=== PATIENT | male | born 1955 | race Caucasian/White ===

== ENCOUNTER 2019-03-26 11:00 | Outpatient (AMBR) | payer MEDICAID, SELFPAY ==
--- NOTE | 2019-03-20 15:31 | PT.OIERPT ---
PT OP Initial Eval Patient Information Visit Reasons: right hip Medical Diagnosis: M25.551 Treatment Dx #1: Right Hip Pain Treatment Dx #2: Right Hip Weakness Start of Care: 03/20/19 Initial Assessment Subjective Pt is a 63 y/o male c/o chronic right hip pain (5/10) started several years ago from fall accident. Pt mention that he recently completed physical therapy which help his back a little, however, wanted to resume more physical therapy for his hip. Pt still has limitation with sit-stand, standing, walking, chores, self care, cooking, cleaning, and performing normal ADLs. Pt further mention that pain meds are helping him control his pain currently. Objective Right Hip PROM: all motions are WFL with end range pain in all plane Right Hip AROM Flexion: 90 deg with pain Abduction: 45 deg Extension: 20 deg IR/ER: 20 deg with pain Right Hip MMTs Glute Med: 3-/5 Glute Max: 3-/5 Hip Flexors: 3-/5 Special Test (-) hip scour (+) FABERs Assessment Pt demonstrate right hip pain with weakness leading to decline function and difficulty with ADLs, chores, and ambulation. Pt will attempt physical therapy if pain persist Pt will be refer back to PCP for further consultation. Short Term and Receptionist Scheduler Goals 1) Increase right hip AROM with less pain in 6 wks to be able to perform chores 2) Increase right hip MMTs grossly to 4-/5 in 6 wks to be able to walk more than 1 hr 3) Decrease right hip pain to 2/10 in 6 wks to be able to perform stand more than 1 hr 4) Indep with HEP Treatment Plan 1) Manual Therapy 2) Therapeutic Activities 3) Therapeutic Exercises 4) Modalities (ice, heat) 5) Balance Training Frequency and Duration 2 x wk for 6 wks Certification Dates: 03/20/19 to 06/20/19 Office Procedures PT Procedures PT Date of Service: 03/20/19 OP PT Eval Mod Complex 30 minutes: Yes
--- NOTE | 2019-03-23 10:11 | PTNOTE_ITS ---
PT Outpatient Daily Note Date of Service: March 23, 2019 OP Daily Note Visit Reasons: right hip Outpatient Physical Therapy Treatment Date: 03/23/19 Subjective: pt states he has pain upon visit due to weakness. Objective: see flow sheet. Assessment: pt tolerated exercises as he had no complaints besides feeling fat igue. pt needs cuing for correct posture as he leans forward a lot. he demonstrates good ROM of the hip throughout ther ex. no antaglic gait noted. last exercise was a stretch of the hip joint in which he felt was tight but after a min it relaxed. pt had difficulty getting up from supine. Plan: continue POC per PT. Length of Time (minutes) of Treatment: 30 Minutes Office Procedures PT Procedures PT Date of Service: 03/20/19 OP PT Eval Mod Complex 30 minutes: Yes
--- NOTE | 2019-03-26 12:54 | PT.ODAYNRPT ---
PT Outpatient Daily Note Date of Service: March 26, 2019 OP Daily Note Visit Reasons: right hip Outpatient Physical Therapy Treatment Date: 03/26/19 Subjective: pt states he feels ok today and had no other complaints. Objective: see flow sheet. Assessment: pt demonstrates poor posture with ambulation. educated about upright posture. needs cuing to stand tall and look up during exercises. added new exercise in which would help strengthen his BLE which is on the TG machine. pt was able to get on and off with no trouble. increased resistance from YTB to RTB in which he had no complaints of increase difficulty. he was able to hold LLPS stretch on the RLE for a few mins. Plan: continue POC per PT. Length of Time (minutes) of Treatment: 30 Minutes Office Procedures PT Procedures PT Date of Service: 03/20/19 OP PT Eval Mod Complex 30 minutes: Yes PT Procedures PT Date of Service: 03/23/19 Therapeutic Exercise 30 minutes: Yes PT Procedures PT Date of Service: 03/26/19 Therapeutic Exercise 30 minutes: Yes
== END 2019-04-07 23:59 | disposition home or self-care (01) ==
PROVIDERS: Visit Provider Nurse Practitioner
DX: M25.551 Pain in right hip (principal); G89.29 Other chronic pain; R53.1 Weakness
CPT/HCPCS: 97110; 97162

== ENCOUNTER 2024-03-26 14:13 | Outpatient (RCR) | payer MEDICARE, MEDICAID, SELFPAY | END 2024-04-07 23:59 | disposition home or self-care (01) | LOC: SCTC 14:13 | PROVIDERS: PCP Physician Assistant; Referring Provider Physician Assistant; Visit Provider Internal Medicine Hematology & Oncology | DX: E83.119 Hemochromatosis, unspecified (principal); M54.9 Dorsalgia, unspecified; G89.29 Other chronic pain; Z86.19 Personal history of other infectious and parasitic diseases; J44.9 Chronic obstructive pulmonary disease, unspecified; Z87.891 Personal history of nicotine dependence | CPT/HCPCS: 99212; G0463 ==

== ENCOUNTER → 2024-03-26 | Outpatient (CLI) | payer MEDICARE, MEDICAID, SELFPAY ==
[2024-03-26 08:37] LABS: Basophils # (Auto) 0.1 Thou/mm3 (0.0-0.2); Basophils % (Auto) 1 % (0-2.5); Eosinophils # (Auto) 1.5 Thou/mm3 (0.0-0.5); Eosinophils % (Auto) 19 % (0-10); Hematocrit 42.9 % (41.0-53.0); Hemoglobin 14.7 g/dL (13.5-16.0); Immature Granulocytes % (Auto) 0 % (0-0); Immature Granulocytes Auto 0.02 Thou/mm3 (0.00-0.00); Lymphocytes # (Auto) 2.3 Thou/mm3 (1.0-4.8); Lymphocytes % (Auto) 28 % (10-50); Mean Corpuscular HGB Conc 34.3 g/dl (31.0-37.0); Mean Corpuscular Hemoglobin 32.5 pg (25.0-35.0); Mean Corpuscular Volume 95 fL (80-100); Monocytes # (Auto) 0.7 Thou/mm3 (0.0-0.8); Monocytes % (Auto) 9 % (0-12); Neutrophils # (Auto) 3.6 Thou/mm3 (1.8-7.7); Neutrophils % (Auto) 44 % (37-80); Nucleated Red Blood Cell % 0 /100 WBC (0); Platelet Count 170 Thou/mm3 (140-440); RDW Standard Deviation 46.1 fL (35.1-43.9); Red Blood Count 4.52 Miln/mm3 (4.50-5.90); White Blood Count 8.2 Thou/mm3 (3.8-10.6)
[2024-03-26 08:51] LABS: Alanine Aminotransferase 19 U/L (10-49); Albumin, Serum 4.1 gm/dL (3.4-4.8); Alkaline Phosphatase 128 U/L (46-116); Anion Gap 5 (7-16); Aspartate Amino Transferase 21 U/L (0-34); BUN/Creatinine Ratio 18 Ratio (12-20); Bilirubin,Total 0.6 mg/dL (0.3-1.2); Blood Urea Nitrogen 14 mg/dL (9-23); Calcium 9.4 mg/dL (8.3-10.6); Calcium (Corrected) 9.4 mg/dL (8.5-10.1); Carbon Dioxide 28.8 mMol/L (20.0-31.0); Chloride 109 mMol/L (98-107); Creatinine (Component) 0.8 mg/dL (0.6-1.3); Globulin 2.1 gm/dL (2.3-3.5); Glucose 106 mg/dL (74-106); Osmolality,Calculated 285 (275-295); Potassium 3.7 mMol/L (3.4-5.1); Sodium 143 mMol/L (136-145); Total Protein 6.2 gm/dL (5.7-8.2); eGFR > 60 See Note
[2024-03-26 10:08] LABS: Ferritin 21 ng/mL (10.5-307.3); Total Iron Binding Capacity 266 mcg/dL (250-425)
[2024-03-26 10:17] LABS: Iron 72 mcg/dL (65-175); Percent Iron Saturation 27 % (20-55); Unsaturated Iron Binding 194 (225-295)
== END | disposition home or self-care (01) ==
LOC: SCTO 06:43
PROVIDERS: PCP Physician Assistant; Referring Provider Nurse Practitioner Family; Visit Provider Nurse Practitioner Family
DX: E83.119 Hemochromatosis, unspecified (principal)
CPT/HCPCS: 36415; 80053; 82105; 82728; 83540; 83550; 85025

== ENCOUNTER → 2024-04-27 | Outpatient (CLI) | payer MEDICARE, MEDICAID, SELFPAY ==
[2024-04-27 09:28] LABS: Basophils # (Auto) 0.1 Thou/mm3 (0.0-0.2); Basophils % (Auto) 1 % (0-2.5); Eosinophils # (Auto) 1.4 Thou/mm3 (0.0-0.5); Eosinophils % (Auto) 22 % (0-10); Hematocrit 42.7 % (41.0-53.0); Hemoglobin 14.6 g/dL (13.5-16.0); Immature Granulocytes % (Auto) 0 % (0-0); Immature Granulocytes Auto 0.01 Thou/mm3 (0.00-0.00); Lymphocytes # (Auto) 2.4 Thou/mm3 (1.0-4.8); Lymphocytes % (Auto) 36 % (10-50); Mean Corpuscular HGB Conc 34.2 g/dl (31.0-37.0); Mean Corpuscular Hemoglobin 32.2 pg (25.0-35.0); Mean Corpuscular Volume 94 fL (80-100); Monocytes # (Auto) 0.4 Thou/mm3 (0.0-0.8); Monocytes % (Auto) 7 % (0-12); Neutrophils # (Auto) 2.3 Thou/mm3 (1.8-7.7); Neutrophils % (Auto) 35 % (37-80); Nucleated Red Blood Cell % 0 /100 WBC (0); Platelet Count 128 Thou/mm3 (140-440); RDW Standard Deviation 46.9 fL (35.1-43.9); Red Blood Count 4.54 Miln/mm3 (4.50-5.90); White Blood Count 6.7 Thou/mm3 (3.8-10.6)
[2024-04-27 09:42] LABS: Alanine Aminotransferase 16 U/L (10-49); Albumin, Serum 4.2 gm/dL (3.4-4.8); Albumin/Globulin Ratio 2.1 (1.2-2.2); Alkaline Phosphatase 125 U/L (46-116); Anion Gap 6 (7-16); Aspartate Amino Transferase < 10 U/L (0-34); BUN/Creatinine Ratio 19 Ratio (12-20); Bilirubin,Total 0.7 mg/dL (0.3-1.2); Blood Urea Nitrogen 15 mg/dL (9-23); Carbon Dioxide 28.1 mMol/L (20.0-31.0); Chloride 109 mMol/L (98-107); Creatinine (Component) 0.8 mg/dL (0.6-1.3); Glucose 106 mg/dL (74-106); Osmolality,Calculated 285 (275-295); Potassium 3.8 mMol/L (3.4-5.1); Sodium 143 mMol/L (136-145); Total Protein 6.2 gm/dL (5.7-8.2); eGFR > 60 See Note
== END | disposition home or self-care (01) ==
LOC: SCTO 08:48
PROVIDERS: PCP Physician Assistant; Referring Provider Nurse Practitioner Family; Visit Provider Nurse Practitioner Family
DX: E83.119 Hemochromatosis, unspecified (principal)
CPT/HCPCS: 36415; 80053; 82105; 85025

== ENCOUNTER 2024-05-21 15:15 | Outpatient (RCR) | payer MEDICARE, MEDICAID, SELFPAY ==
--- NOTE | 2024-05-21 21:57 | CTCFLWUP_ITS ---
Patient: KENNEY GIBBS : 1955 Page 6 of 6 FOLLOW UP NOTE DATE OF SERVICE: 05/21/2024 NAME: KENNEY GIBBS ACCOUNT: [id number] : 1955 AGE: 69 INTERVAL HISTORY: Patient have no new complaints. Patient is upset that he could not find pacemaker company to switch of his pacemaker so he can get his MRI. He completed his lab works today and so he is unable to get results to discuss on the visit. HISTORY OF PRESENT ILLNESS: PREVIOUS NOTE: Kenney Gibbs is a 69-year-old ENG speaking male with history of IV drug a buse when he was 17 years old for about a year. Apparently he contracted hepatitis C infection. Abo ut 3 years ago he was treated with Harvoni. He is referred to hematology clinic to rule out hemochro matosis due to elevated ferritin levels. History of smoking for 40 years, not smoking at this time, COPD, chronic back pain. 12/11/2020: Serum ferritin 3954. Hepatitis C virus antibody more than 11.0. Hepatitis C RNA by PCR no t detected.? 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 AFP 1.8. 01/20/2021: Ultrasound of the liver- 04/23/2021: iron saturation 88%, ferritin 2119, unsaturated iron binding 27. Hemoglobin 15.4 and hem atocrit 44.1. 05/05/2021: Inherited hemochromatosis DNA mutation analysis? 06/16/2021: Hemoglobin 14.4, MCV 98, iron saturation 87%, ferritin 2707. aFP 3.20 06/16/2021: Mr. Gibbs had first therapeutic phlebotomy. He had 300 mL of blood removed. Unfortunate ly following well patient became unconscious for a few seconds. He had severe vasovagal attack. He was transferr ed to ER and eventually he recovered in the ICU. 07/06/2021: WBC 8.2, hemoglobin 15.7, MCV 99, platelets 174,000, creatinine 0.73, AST 36, ALT 33, iron saturation more than 93% ferritin 2065. 07/06/2021: Jadenu 360 mg p.o. 3 times daily prescribed. Unfortunately insurance company denied the r equest. 07/28/2021: Insurance company replied? 09/18/2021: Mr. Gibbs was started on therapeutic phlebotomies. 01/20/2022: Mr. Gibbs had a total of 14 therapeutic phlebotomy so far. 01/25/2022: Iron saturation 80%, ferritin 1261, hemoglobin 12.9, MCV 99, WBC 8.9, ANC 5.3, platelets 1 66,000. aFP 2.50. 01/26/2022: Colonoscopy : 03/17/2022: AFP 1.6, Ferritin 1152 05/20/2022: AFP <1.3, Ferritin 1115 07/12/2022: AFP 1.9, Ferritin 764 09/27/22: AFP 2.1, Ferritin 262 10/25/2022: AFP <1.3, Ferritin 197 09/18/2022: Liver US 11/18/2022: Ferritin 124, AFP 2.3 02/10/2023: Ferritin 53, AFP 1.70 03/14/2023: Ferritin 48, 39% iron saturation, hemoglobin 15.3 04/07/2023: Therapeutic phlebotomy 06/15/2023: Ferritin 57, iron saturation 41%, AFP 1.40, hemoglobin 14.2 06/16/2023: Therapeutic phlebotomy. 06/23/2023: Chest without contrast IMPRESSION: No mediastinal lymphadenopathy Soft opacities throughout both lungs most consistent with pneumonia, Covid pneumonia would be included in the differential 07/13/2023: Ferritin 44, iron saturation 40%, hemoglobin 15.0 09/14/2023: Ferritin 44, iron saturation 72%, AFP 1.50, hemoglobin 14.8, MCV 96 09/30/2023: Ultrasound liver 10/11/2023: Therapeutic phlebotomy 11/09/2023: Therapeutic phlebotomy 11/14/2023: Ferritin 39, iron saturation 58%, AFP 2.0, hemoglobin 14.6, MCV 97 12/19/2023: Therapeutic phlebotomy 12/30/2023: AFP 2.20, ferritin 24, iron saturation 29%, hemoglobin 13.5, MCV 97 01/10/2024: Ferritin 20, iron saturation 18%, hemoglobin 13.8, MCV 97 01/17/2024: Ferritin 25, iron saturation 40%, hemoglobin 13.8, MCV 97 01/15/2024: Ferritin 21, iron saturation 56%, hemoglobin 14.0, MCV 96 OTHER MEDICAL HISTORY/CONDITIONS: FAMILY HISTORY: SOCIAL HISTORY: MEDICATIONS: 1. albuterol-budesonide - 90-80 mcg/actuation 1 As directed 2. amitriptyline - 50 mg Daily 3. omeprazole - 20 mg 1 Capsule Twice a Day 4. Pravachol - 40 mg Daily Medications Last Reconciled by Avelina Magallanes RN on 05/21/2024 ALLERGIES: No Known Drug Allergies REVIEW OF SYSTEMS: A complete 14-point review of systems was performed and is negative except as noted in interval histo ry. PHYSICAL EXAMINATION: VITAL SIGNS: Temperature?98.9, B/P?161/82, Oxygen?Saturation?96% Weight?197?lbs PAIN: 5 - Between moderate and severe pain ECOG Performance Status: 0 - Asymptomatic and fully active GENERAL APPEARANCE: Appears well, in no apparent distress, appropriately interactive. HEENT: Normocephalic, no temporal wasting, normal conjunctiva, no scleral icterus, normal hearing, li ps without lesions, neck normal range of motion. CARDIOVASCULAR: Not assessed. PULMONARY: Normal respiratory effort, no respiratory distress or use of accessory muscles, speaking i n full sentences, no tachypnea. EXTREMITIES: No pedal edema or cyanosis. SKIN: Normal skin appearance. NEUROLOGIC: Alert and oriented x4. PSHYCHIATRIC: Appropriate affect, mood normal, behavior normal, intact thought and speech. LABORATORY DATA: I have personally reviewed and interpreted each of the patient?s relevant lab tests, abnormal finding s are below: Date 05/21/24 ??WHITE?BLOOD?COUNT?(Thou/mm3) 8.1 ??RED?BLOOD?COUNT?(Miln/mm3) 4.66 ??HEMOGLOBIN?(gm/dl) 15.2 ??HEMATOCRIT?(%) 43.8 ??PLATELET?COUNT?(Thou/mm3) 139?L ??NEUTROPHILS?%,?AUTO?(%) 42 ??LYMPH?%,?AUTO?(%) 29 ??NEUTROPHILS,?AUTO?(Thou/mm3) 3.4 ASSESSMENT/PLAN: C282Y homozygous hemochromatosis. Weekly therapeutic phlebotomy for 52 weeks. First therapeutic phlebotomy on 09/18/2021. Last therapeutic phlebotomy was on 12/19/2023. History of hepatitis C infection treated with Harvoni in the past. Insurance company denied Jadenu (deferasirox). Goal hematocrit less than 45 Patient have not completed his MRIMRI using T2*, R2, and R2* measurements has become increasingly acc urate for determining hepatic and cardiac ir?n deposition and has generally supplanted direct tissue biopsy for assessing ir?? overload and quantifying its severity. Patient have pacemaker and will see if he can get mri liver Will check the CBC and ferritin level at approximately every 2 months now . I f the ferritin level has increased and the increase is interpreted to be due to ir?n reaccumulation ( provided there is not another explanation such as an intercurrent illness), we perform maintenance ph lebotomies. Typically, removal of one unit of blood approximately three to six times per year is requ ired (approximately once every two to four months). We target a ferritin level in the low normal rang e (between 50 and 150 ng/mL) #2. History of hepatitis C infection treated with Harvoni in the past. History of IV drug abuse when Mr. Gibbs was 17 years of age for about a year. Insurance company denied Jadenu (deferasirox). Ultrasound liver, primary hepatocellular disease versus cirrhosis, infiltration no focal liver lesion s, 09/30/2023. AFP remains stable, 2.20, (12/30/2023) #3. Chronic back pain. Continue following up with PCP for management. Better after steroid injection #4. COPD, history of smoking [address] of chest, no mediastinal lymphadenopathy, pneumonia as detailed above, 06/23/2023; completed antibiotics given by PCP cough improved. Continue following up with PCP for management. ORDERS: CBC CMP ferritin iron studies Number provided to 4 pacemaker company per patient RETURN TO CLINIC: After the MRI BILLING AND COMPLIANCE: I reviewed external records from providers outside my specialty as summarized above. I spent a total of 50 minutes on this patient?s care on the day of their visit excluding time spent related to any bi lled procedures. This time includes time spent with the patient as well as time spent documenting in the medical record, reviewing patients records and tests, obtaining history, placing orders, communi cating with other healthcare professionals, counseling the patient, family or caregiver, and/or care coordination for the diagnoses above. Electronically Signed by: {Object.Sanct_ID*[email or web address]@M}, {Object.Sanct_ID*PnP.Suffix@U} D: {Object.Sanct_Date} T: {Object.Sanct_Time} CC: Cam?Yi?Clara,? PCP: Bertin Card Referring: Chetan Berger This document was completed utilizing speech recognition software. Grammatical errors, random word in sertions, pronoun errors, and incomplete sentences are an occasional consequence of this system due t o software limitations, ambient noise, and hardware issues. Any formal questions or concerns about th e content, text or information contained within the body of this dictation should be directly address ed to the provider for clarification.
== END 2024-06-08 23:59 | disposition home or self-care (01) ==
LOC: SCTC 15:15
PROVIDERS: PCP Internal Medicine; Referring Provider Internal Medicine; Visit Provider Internal Medicine Hematology & Oncology
DX: E83.119 Hemochromatosis, unspecified (principal); J44.9 Chronic obstructive pulmonary disease, unspecified; Z87.891 Personal history of nicotine dependence; Z86.19 Personal history of other infectious and parasitic diseases; Z95.0 Presence of cardiac pacemaker
CPT/HCPCS: 99212; G0463

== ENCOUNTER → 2024-05-21 | Outpatient (CLI) | payer MEDICARE, MEDICAID, SELFPAY ==
[2024-05-21 10:47] LABS: Basophils # (Auto) 0.1 Thou/mm3 (0.0-0.2); Basophils % (Auto) 1 % (0-2.5); Eosinophils # (Auto) 1.7 Thou/mm3 (0.0-0.5); Eosinophils % (Auto) 21 % (0-10); Hematocrit 43.8 % (41.0-53.0); Hemoglobin 15.2 g/dL (13.5-16.0); Immature Granulocytes % (Auto) 0 % (0-0); Immature Granulocytes Auto 0.01 Thou/mm3 (0.00-0.00); Lymphocytes # (Auto) 2.3 Thou/mm3 (1.0-4.8); Lymphocytes % (Auto) 29 % (10-50); Mean Corpuscular HGB Conc 34.7 g/dl (31.0-37.0); Mean Corpuscular Hemoglobin 32.6 pg (25.0-35.0); Mean Corpuscular Volume 94 fL (80-100); Monocytes # (Auto) 0.5 Thou/mm3 (0.0-0.8); Monocytes % (Auto) 7 % (0-12); Neutrophils # (Auto) 3.4 Thou/mm3 (1.8-7.7); Neutrophils % (Auto) 42 % (37-80); Nucleated Red Blood Cell % 0 /100 WBC (0); Platelet Count 139 Thou/mm3 (140-440); RDW Standard Deviation 46.5 fL (35.1-43.9); Red Blood Count 4.66 Miln/mm3 (4.50-5.90); White Blood Count 8.1 Thou/mm3 (3.8-10.6)
[2024-05-21 19:07] LABS: Ferritin 38 ng/mL (10.5-307.3)
== END | disposition home or self-care (01) ==
PROVIDERS: PCP Internal Medicine; Referring Provider Internal Medicine Hematology & Oncology; Visit Provider Internal Medicine Hematology & Oncology
DX: E83.119 Hemochromatosis, unspecified (principal)
CPT/HCPCS: 36415; 82728; 85025

== ENCOUNTER → 2024-06-15 | Outpatient (CLI) | payer MEDICARE, MEDICAID, SELFPAY ==
--- NOTE | 2024-06-15 09:59 | XR_ITS ---
Examination: Lumbar spine, 5 views Technique: Lumbar spine AP, lateral, coned lateral lower lumbar spine, bilateral obliques 5 views Exam date and time: June 15, 2024 1018 hours INDICATIONS: Chronic low back pain years. FINDINGS: Lumbar dextroscoliosis 15 degrees Prominent osteopenia Diffuse advanced facet arthropathy No lumbar fracture Advanced diffuse lumbar degenerative disc disease IMPRESSION: Advanced diffuse lumbar degenerative disc disease
--- NOTE | 2024-06-15 09:59 | XR_ITS ---
Examination: Breast ultrasound complete, bilateral Date and time of exam: June 15, 2024 1007 hours INDICATIONS: Mammogram April 16, 2024 4 mm nodule retroareolar region right breast 4 mm nodule outer left breast Technique: Real-time grayscale ultrasonographic imaging bilateral breasts, including all 4 quadrants as well as nipple retroareolar and axillary regions. Findings: Sonographic images right breast Retroareolar cyst 4 x 3 mm No solid nodules Sonographic images left breast 12:00 oval mass lobular margins 8 x 4 x 7 mm IMPRESSION: BI-RADS Category 3: Probably benign findings Recommend 1 additional 6 month left breast sonogram follow-up to document stability of 12:00 nodule described above
[2024-06-15 11:25] LABS: Basophils # (Auto) 0.1 Thou/mm3 (0.0-0.2); Basophils % (Auto) 1 % (0-2.5); Eosinophils # (Auto) 1.1 Thou/mm3 (0.0-0.5); Eosinophils % (Auto) 14 % (0-10); Hematocrit 43.3 % (41.0-53.0); Hemoglobin 14.9 g/dL (13.5-16.0); Immature Granulocytes % (Auto) 0 % (0-0); Immature Granulocytes Auto 0.01 Thou/mm3 (0.00-0.00); Lymphocytes # (Auto) 2.5 Thou/mm3 (1.0-4.8); Lymphocytes % (Auto) 32 % (10-50); Mean Corpuscular HGB Conc 34.4 g/dl (31.0-37.0); Mean Corpuscular Volume 96 fL (80-100); Monocytes # (Auto) 0.6 Thou/mm3 (0.0-0.8); Monocytes % (Auto) 8 % (0-12); Neutrophils # (Auto) 3.6 Thou/mm3 (1.8-7.7); Neutrophils % (Auto) 45 % (37-80); Nucleated Red Blood Cell % 0 /100 WBC (0); Platelet Count 165 Thou/mm3 (140-440); RDW Standard Deviation 48.5 fL (35.1-43.9); Red Blood Count 4.52 Miln/mm3 (4.50-5.90)
[2024-06-15 11:37] LABS: Glucose Estimated Average 111 mg/dL (80-131); Hemoglobin A1C 5.5 % Hgb (4.8-6.0)
[2024-06-15 11:39] LABS: Prostate Specific Antigen 0.42 ng/mL (0-4.00)
[2024-06-15 11:43] LABS: Vitamin D 25 Hydroxy Total 87.3 ng/mL (7.3-40.2)
[2024-06-15 11:45] LABS: Alanine Aminotransferase 22 U/L (10-49); Albumin/Globulin Ratio 1.8 (1.2-2.2); Alkaline Phosphatase 128 U/L (46-116); Anion Gap 4 (7-16); Aspartate Amino Transferase 21 U/L (0-34); BUN/Creatinine Ratio 20 Ratio (12-20); Bilirubin,Total 0.7 mg/dL (0.3-1.2); Blood Urea Nitrogen 18 mg/dL (9-23); Calcium 8.9 mg/dL (8.3-10.6); Calcium (Corrected) 8.9 mg/dL (8.5-10.1); Chloride 109 mMol/L (98-107); Cholesterol 164 mg/dL (132-200); Creatinine (Component) 0.9 mg/dL (0.6-1.3); Free T4 (Free Thyroxine) 1.02 ng/dL (0.89-1.76); Globulin 2.2 gm/dL (2.3-3.5); Glucose 106 mg/dL (74-106); HDL Cholesterol 54 mg/dL (40-60); LDL Cholesterol,Calculated 98 mg/dL (0-130); Osmolality,Calculated 286 (275-295); Potassium 4.5 mMol/L (3.4-5.1); Sodium 143 mMol/L (136-145); Thyroid Stimulating Hormone 1.83 uIU/mL (0.55-4.78); Total Protein 6.2 gm/dL (5.7-8.2); Triglycerides 60 mg/dL (30-150); eGFR > 60 See Note
== END | disposition home or self-care (01) ==
PROVIDERS: PCP Internal Medicine; Referring Provider Internal Medicine; Visit Provider Internal Medicine
DX: R06.00 Dyspnea, unspecified (principal); M51.369 Other intervertebral disc degeneration, lumbar region without mention of lumbar back pain or lower extremity pain; Z00.00 Encounter for general adult medical examination without abnormal findings
CPT/HCPCS: 36415; 71046; 72110; 80053; 80061; 82306; 83036; 84153; 84439; 84443; 85025

== ENCOUNTER → 2024-08-16 | Outpatient (CLI) | payer MEDICARE, MEDICAID, SELFPAY ==
[2024-08-16 09:32] LABS: Basophils # (Auto) 0.1 Thou/mm3 (0.0-0.2); Basophils % (Auto) 1 % (0-2.5); Eosinophils # (Auto) 1.6 Thou/mm3 (0.0-0.5); Eosinophils % (Auto) 19 % (0-10); Hematocrit 43.1 % (41.0-53.0); Hemoglobin 15.2 g/dL (13.5-16.0); Immature Granulocytes % (Auto) 0 % (0-0); Immature Granulocytes Auto 0.02 Thou/mm3 (0.00-0.00); Lymphocytes # (Auto) 2.5 Thou/mm3 (1.0-4.8); Lymphocytes % (Auto) 30 % (10-50); Mean Corpuscular HGB Conc 35.3 g/dl (31.0-37.0); Mean Corpuscular Hemoglobin 34.2 pg (25.0-35.0); Mean Corpuscular Volume 97 fL (80-100); Monocytes # (Auto) 0.5 Thou/mm3 (0.0-0.8); Monocytes % (Auto) 6 % (0-12); Neutrophils # (Auto) 3.8 Thou/mm3 (1.8-7.7); Neutrophils % (Auto) 44 % (37-80); Nucleated Red Blood Cell % 0 /100 WBC (0); Platelet Count 164 Thou/mm3 (140-440); RDW Standard Deviation 47.8 fL (35.1-43.9); Red Blood Count 4.45 Miln/mm3 (4.50-5.90); White Blood Count 8.5 Thou/mm3 (3.8-10.6)
[2024-08-16 10:00] LABS: Alanine Aminotransferase 17 U/L (10-49); Albumin, Serum 3.9 gm/dL (3.4-4.8); Alkaline Phosphatase 138 U/L (46-116); Anion Gap 6 (7-16); Aspartate Amino Transferase 24 U/L (0-34); BUN/Creatinine Ratio 16 Ratio (12-20); Bilirubin,Direct 0.2 mg/dL (0.0-0.3); Bilirubin,Total 0.7 mg/dL (0.3-1.2); Blood Urea Nitrogen 13 mg/dL (9-23); Calcium 8.7 mg/dL (8.3-10.6); Carbon Dioxide 27.7 mMol/L (20.0-31.0); Cardiac Risk Estimate 2.8 RATIO (4.0-6.7); Chloride 111 mMol/L (98-107); Cholesterol 151 mg/dL (132-200); Creatinine (Component) 0.8 mg/dL (0.6-1.3); Free T4 (Free Thyroxine) 1.03 ng/dL (0.89-1.76); Glucose 117 mg/dL (74-106); HDL Cholesterol 53 mg/dL (40-60); LDL Cholesterol,Calculated 88 mg/dL (0-130); Osmolality,Calculated 289 (275-295); Potassium 4.2 mMol/L (3.4-5.1); Sodium 145 mMol/L (136-145); Thyroid Stimulating Hormone 1.71 uIU/mL (0.55-4.78); Total Protein 6.3 gm/dL (5.7-8.2); Triglycerides 50 mg/dL (30-150); eGFR > 60 See Note
== END | disposition home or self-care (01) ==
LOC: COPL 08:44
PROVIDERS: PCP Internal Medicine; Referring Provider Internal Medicine Cardiovascular Disease; Visit Provider Internal Medicine Cardiovascular Disease
DX: I10 Essential (primary) hypertension (principal); E78.5 Hyperlipidemia, unspecified; I49.9 Cardiac arrhythmia, unspecified
CPT/HCPCS: 36415; 80048; 80061; 80076; 84439; 84443; 85025